=== PATIENT | male | born 1940 | race Caucasian/White ===

== ENCOUNTER → 2016-08-31 | Outpatient (CLI) | payer MEDICARE, OTHER ==
--- NOTE | 2016-08-31 09:14 | CT ---
EXAM DESCRIPTION: Abdomen and pelvis CT. CLINICAL HISTORY: Renal cyst followup COMPARISON: December 05, 2015 TECHNIQUE: Prior to and after the administration of contrast thin slice imaging of the abdomen and pelvis was performed. FINDINGS: Lung bases clear. Prior granulomatous disease is seen within the spleen. The liver, portal vein, gallbladder and pancreas are unremarkable. Bilateral renal cysts again noted. No evidence a renal obstruction. The renal cyst on today's study are stable. The ectasia of the infrarenal abdominal aorta. It measures 2.9 cm in diameter. On the previous exam it measured 2.75 cm. Small bowel is unobstructed. Diverticulosis of the colon noted. The appendix is unremarkable. The prostate is enlarged measuring 4.7 cm in the transverse dimension. IMPRESSION: The bilateral renal cysts are stable in size when compared to prior study. The Bosniac 2 F cyst seen within the upper pole of left kidney once again demonstrates septations along its inferior margin. A follow-up exam in 1 year is suggested to help document 2 years stability and a benign etiology. 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 This will also be followed up on patient subsequently ordered study as it is borderline aneurysmal. Electronically signed by: Rajinder Styles MD 08/31/2016 09:12
== END | disposition home or self-care (01) ==
LOC: CT 07:38
PROVIDERS: ATTEND Urology
DX: N28.1 Cyst of kidney, acquired (principal)

== ENCOUNTER → 2016-11-19 | Outpatient (CLI) | payer MEDICARE, OTHER | LOC: GMAB 10:36 | PROVIDERS: ATTEND Family Medicine | DX: I10 Essential (primary) hypertension (principal); Z12.5 Encounter for screening for malignant neoplasm of prostate | CPT/HCPCS: 84443; G0103 ==

== ENCOUNTER 2017-10-04 09:02 | Emergency (ER) | payer MEDICARE, OTHER ==
[2017-10-04] MEDS ORDERED: ALUM & MAG HYDROX-SIMETHICONE 30 ML, LIDOCAINE VISCOUS 2% 15 ML PO ONE ×2 (09:47)
--- NOTE | 2017-10-04 09:51 | ED.PDOC ---
History of Present Illness - General Chief Complaint: Abdominal Pain Stated Complaint: MIDEPIGASTRIC PAIN Time Seen by Provider: 10/04/17 09:36 Information Source: patient Exam Limitations: no limitations Additional Information: C/O EPIGASTRIC PAIN X 4 DAYS, CONSTANT, WORSENING, SHARP, BURNING, NO RADIATION - History of Present Illness Abdominal Pain Onset Location: epigastric Pain Radiation: no radiation Improving Factors: nothing Worsening Factors: nothing Associated Symptoms: denies symptoms Review of Systems - Review of Systems Constitutional: Denies: chills, fever EENTM: States: no symptoms reported Respiratory: Denies: cough, short of breath, wheezing Cardiology: Denies: chest pain, palpitations, syncope Gastrointestinal/Abdominal: States: abdominal pain. Denies: diarrhea, nausea, vomiting Genitourinary: States: no symptoms reported Musculoskeletal: States: no symptoms reported Skin: States: no symptoms reported Neurological: States: no symptoms reported Endocrine: States: no symptoms reported Hematologic/Lymphatic: States: no symptoms reported Past Medical History (General) - Patient Medical History Hx Stroke: No Hx Dementia: No Hx Asthma: No Hx of COPD: No Hx Cardiac Disorders: No Hx Congestive Heart Failure: No Hx Pacemaker: No Hx Hypertension: Yes Hx Thyroid Disease: No Hx Diabetes: No Hx Gastroesophageal Reflux: No Hx Renal Disease: No Surgical History: no surgical history - Social History Hx Tobacco Use: Yes Family Medical History - Family History Mother Family History: No Known Physical Exam - Physical Exam General Appearance: Alert, No apparent distress Eyes, Ears, Nose, Throat Exam: PERRL/EOMI, normal ENT inspection Neck: non-tender, full range of motion Respiratory: lungs clear, normal breath sounds Cardiovascular/Chest: regular rate, rhythm, no murmur Gastrointestinal/Abdominal: normal bowel sounds, soft, no organomegaly, other - MILD TTP EPIGASTRIC AND RUQ, NO CRAWFORD'S, NO HSM. NO MASSES Back Exam: normal inspection, no CVA tenderness, no vertebral tenderness Extremity: normal range of motion, non-tender Neurologic: alert, normal mood/affect Skin Exam: normal color, warm/dry Lymphatic: no adenopathy Progress - Progress Progress: 10/04/17 11:29 VSS. PT VERY ANXIOUS TO GO. HAS THREATENED TO LEAVE AMA ONCE. FEELS SOME BETTER. DISCUSSED RESULTS, DX, DIET, AND F/U WITH PT. - EKG/XRAY/CT EKG: Sinus - NSR, 66, NL AXIS, NL INTERVALS, , no ST T wave changes - NO OLD FOR COMPARISON XRAY: chest - RONAL Departure - Departure Clinical Impression: Abdominal pain Qualifiers: Abdominal location: right upper quadrant Qualified Code(s): R10.11 - Right upper quadrant pain Hypertension Qualifiers: Hypertension type: essential hypertension Qualified Code(s): I10 - Essential ( primary) hypertension ICD-10 Supporting Text: EPIGASTRIC, DDX: BILIARY COLIC, GASTRITIS Time of Disposition: :31 Disposition: Discharge to Home or Self Care Condition: Good Departure Forms: ED Discharge - Pt. Copy, Patient Portal Self Enrollment Instructions: DI for Abdominal Pain-Adult, DI for Biliary Colic Referrals: Lucas Moreno MD [Primary Care Provider] - 1-2 Weeks Prescriptions: Dicyclomine HCl [Bentyl] 20 mg PO Q6HR PRN #20 tab PRN Reason: Abdominal Cramping Tramadol HCl [Ultram] 50 mg PO Q6HR PRN #15 tab PRN Reason: Pain Home Medications: Ambulatory Orders Dicyclomine HCl [Bentyl] 20 mg PO Q6HR PRN #20 tab 10/04/17 Tramadol HCl [Ultram] 50 mg PO Q6HR PRN #15 tab 10/04/17
[2017-10-04] MEDS ORDERED: ALUM & MAG HYDROX-SIMETHICONE 30 ML UD ONE (10:00)
[2017-10-04] MEDS ORDERED: LIDOCAINE HCL 2% (MOUTH-THROAT) 15 ML UD ONE (10:00)
--- NOTE | 2017-10-04 10:41 | RAD ---
EXAM DESCRIPTION: Chest,1 View CLINICAL HISTORY: EPIGASTRIC PAIN FINDINGS/ IMPRESSION: Normal cardiomediastinal silhouette No pulmonary edema, infiltrate or effusion Electronically signed by: Aaron John MD 10/04/2017 10:41 AM CDT
[2017-10-04 11:41] VITALS: BP 150/89; TEMP 97.7; O2SAT 98
--- NOTE | 2017-10-04 17:32 | CT ---
EXAM DESCRIPTION: Abdomen/Pelvis w/wo Contrast CLINICAL HISTORY: 77 years Male, EPIGASTRIC PAIN COMPARISON: 31 August 2016 TECHNIQUE: Transaxial images were obtained with and without intravenous contrast media and without oral contrast media. Sagittal and coronal reconstruction was performed.This exam was performed according to our departmental dose-optimization program, which includes automated exposure control, adjustment of the mA and/or kV according to patient size and/or use of iterative reconstruction technique. FINDINGS: The lung bases are clear. The liver and spleen are normal in appearance. No biliary ductal dilatation is observed. The gallbladder is normal in appearance. Scattered calcified granulomas are observed in the spleen. No adrenal masses are detected. The pancreas has a cystic mass to its head which measures 5 cm in greatest dimension. This is felt to represent a pseudocyst. The body and tail of the pancreas are normal. Scattered simple cysts are detected throughout both kidneys. No solid mass or calcification is detected. Calcific atherosclerotic changes observed in the abdominal aorta without evidence of aneurysmal dilatation. No free fluid is observed. No inguinal region abnormality is detected. Some distention of the cecum with stool is observed. The cecum measures 8.4 cm in maximal diameter. No free fluid is observed. Some diverticulosis of the colon is observed without evidence of diverticulitis. IMPRESSION: 1. A cystic mass is observed in the head of the pancreas measuring 5 cm in diameter is believed to represent a pseudocyst. 2. Cysts are again observed in both kidneys and remain unchanged from the previous exam. 3. Some distention of the cecum is observed. It measures 8.4 cm in maximal diameter. 4. Uncomplicated diverticulosis of the colon. Electronically signed by: Jered Lazo MD 10/04/2017 5:31 PM CDT
== END 2017-10-04 11:41 | disposition home or self-care (01) ==
LOC: ER 09:02
DX: R10.11 Right upper quadrant pain (principal); I10 Essential (primary) hypertension

== ENCOUNTER → 2017-11-26 | Outpatient (CLI) | payer MEDICARE, OTHER | LOC: LAB.O 09:33 | PROVIDERS: ATTEND Internal Medicine Hematology & Oncology | DX: C83.39 Diffuse large B-cell lymphoma, extranodal and solid organ sites (principal) ==

== ENCOUNTER 2017-12-10 05:36 | Day surgery (SDC) | payer MEDICARE, OTHER ==
[2017-12-10] MEDS ORDERED: SODIUM BICARBONATE VIAL 50 MEQ/50 ML VIAL ONE (07:06)
[2017-12-10] MEDS ORDERED: LIDOCAINE 1% 50 ML VIAL INJ ONE (07:06)
[2017-12-10] MEDS ORDERED: HEPARIN SODIUM 100 U/ML 5 ML SYG IV ONE (07:07)
[2017-12-10] MEDS ORDERED: SODIUM CHLORIDE 0.9% 50 ML VIAL ONE (07:08)
[2017-12-10] MEDS ORDERED: ceFAZolin SODIUM 1 GM VIAL ONE (07:20)
[2017-12-10] MEDS ORDERED: LACTATED RINGERS 1,000 ML ONE (07:20)
[2017-12-10] MEDS ORDERED: SODIUM CHL 0.9% 100ML MINI-BAG 100 ML IVPB ONE (07:20)
--- NOTE | 2017-12-10 08:29 | RAD ---
EXAM DESCRIPTION: Chest,2 Views CLINICAL HISTORY: pre op COMPARISON: October 04, 2017 FINDINGS: Two-view chest x-ray shows cardiomediastinal silhouette and pulmonary vasculature to be within normal limits. The lungs are mildly hyperinflated without acute appearing of tracer consolidation.. Costophrenic angles are sharp. Mild disc degenerative changes of the spine are seen. IMPRESSION: No radiographic evidence of acute cardiopulmonary disease. Electronically signed by: Gurwinder Ching MD 12/10/2017 8:28 AM CDT
[2017-12-10] MEDS ORDERED: PROPOFOL 200 MG/20 ML VIAL IV ONE (09:00)
[2017-12-10] MEDS ORDERED: LIDOCAINE 1% 10 ML VIAL INJ ONE (09:00)
--- NOTE | 2017-12-10 10:02 | OP ---
DATE OF PROCEDURE: 12/10/17 PREOPERATIVE DIAGNOSIS: 1. Large B cell lymphoma. POSTOPERATIVE DIAGNOSIS: 1. Large B cell lymphoma. PROCEDURE: 1. Insertion of right subclavian venous access port using fluoroscopy. SURGEON: Tin Phipps MD. [employer] CONSULTANT: None. ANESTHESIA: Local infiltration of 1% lidocaine and IV sedation by Anesthesia. INDICATION: The patient is a 77-year-old male who has been diagnosed with large B cell lymphoma. He is to begin chemotherapy. He was brought to the Surgical Suite today for insertion of subclavian venous access port after the risks, benefits and alternatives to the procedure were discussed and accepted by the patient. FINDINGS: The subclavian vein was identified with one pass of the 22-gauge needle. The guidewire was identified in the chest in proper position in the superior vena cava, as is the port using fluoroscopy. PROCEDURE: After the patient was brought to the Surgical Suite and placed in the supine position, he was prepped and draped in the usual sterile manner. A surgical time-out was taken. At this point, the infraclavicular area on the right was infiltrated with anesthesia. A 22-gauge needle was walked down under the clavicle and advanced until venous blood was aspirated. A stab wound was made with a #15 blade and then the 18-gauge thin wall needle was introduced in the same tract. Venous blood was obtained. The guidewire was introduced to approximately 28 cm and cardiac ectopy was identified, so it was backed out to approximately 20 cm. The needle was removed. A port pocket was formed in the usual manner with local infiltration of anesthesia, a sharp knife and then dissection using electrocautery. Hemostasis was obtained with electrocautery. A towel was then placed over the field. Fluoroscopy was used to identify the guidewire in the superior vena cava. At this point, the port was introduced into the port pocket and sutured in placed with two simple sutures of Prolene. The catheter was tunneled from the port pocket to the introducer site using the tunneler. It was then cut to appropriate length. The dilator introducer was introduced over the guidewire. The dilator and guidewire were removed and the catheter was introduced through the introducer. The introducer was removed in the usual manner. When this was done, the port was accessed, easily aspirated and then flushed with heparinized saline followed by heplock and then de- accessed. At this point, another towel was put over the field and the catheter was checked for position in the superior vena cava. When this was done, the port pocket subcutaneous tissue was reapproximated with interrupted 3-0 Vicryl sutures and the skin edges were approximated with 4-0 Vicryl subcuticular sutures, benzoin and Steri-Strips. The insertion site incision was closed with a single 4-0 Vicryl subcuticular suture, benzoin and Steri-Stripped. Pressure dressings were applied. The patient was awakened and taken to the Ambulatory Unit in stable condition. Estimated blood loss was less than 25 mL. All sponge , needle and instrument counts were correct. #[id number] [facility]
--- NOTE | 2017-12-10 10:18 | RAD ---
EXAM DESCRIPTION: Chest,1 View CLINICAL HISTORY: S/P PORT PLACEMENT COMPARISON: Chest x-ray at 745 this morning. TECHNIQUE: AP portable taken at 947 hours, upright position. FINDINGS: Central VAD inserted right subclavian with tip in the upper superior vena cava. No mediastinal widening or pneumothorax. No pleural effusion or infiltrate bilaterally. Cardiopulmonary vascular structures are unremarkable. IMPRESSION: Placement of VAD with no radiographic evidence of complications. Electronically signed by: Octavio Hansen MD 12/10/2017 10:16 AM CDT
[2017-12-10 10:57] VITALS: O2SAT 98
[2017-12-10 10:59] VITALS: BP 175/81; TEMP 97.3
== END 2017-12-10 10:40 | disposition home or self-care (01) ==
LOC: AMB 05:36
PROVIDERS: ATTEND Surgery
DX: C85.10 Unspecified B-cell lymphoma, unspecified site (principal); N40.0 Benign prostatic hyperplasia without lower urinary tract symptoms; I10 Essential (primary) hypertension; F17.210 Nicotine dependence, cigarettes, uncomplicated; R91.1 Solitary pulmonary nodule; N28.1 Cyst of kidney, acquired; Z88.2 Allergy status to sulfonamides; Z79.899 Other long term (current) drug therapy
CPT/HCPCS: 00532; 36415; 36561; 71045; 71046; 76000; 80048; 81001; 85025; 93005; A4216; J0690; J1642; J3490; J7050; J7120

== ENCOUNTER → 2017-12-31 | Outpatient (CLI) | payer MEDICARE, OTHER | LOC: GMAJS 11:26 | PROVIDERS: ATTEND Physician Assistant | DX: M25.461 Effusion, right knee (principal) ==

== ENCOUNTER → 2018-01-04 | Outpatient (CLI) | payer MEDICARE, OTHER | LOC: LAB.O 08:22 | PROVIDERS: ATTEND Internal Medicine Hematology & Oncology | DX: C83.39 Diffuse large B-cell lymphoma, extranodal and solid organ sites (principal) ==

== ENCOUNTER 2018-01-19 09:36 | Emergency (ER) | payer MEDICARE, OTHER ==
[2018-01-19] MEDS ORDERED: diazePAM 2 MG TAB PO ONE (10:00)
--- NOTE | 2018-01-19 10:48 | RAD ---
Procedure: XR CERVICAL SPINE 2 - 3 VIEWS Exam Date: 01/19/2018 9:59 AM CDT Ordering Provider: Toro Hannah Clinical Indication: paraspinal muscle spasms, chemo Comparison: None Findings: There is evidence of profound osteopenia. 2 mm grade 1 anterolisthesis at C6-C7. Multilevel moderate to severe disc space narrowing and endplate spurring is present. No definite acute fracture or focal osseous destruction is present. Prevertebral soft tissues are unremarkable. Slightly limited evaluation of the cervicothoracic junction. IMPRESSION: No acute osseous abnormality. Multilevel moderate to severe degenerative disc disease. Profound osteopenia. Electronically signed by: Yasmany Lozano MD 01/19/2018 10:47 AM CDT
[2018-01-19] MEDS ORDERED: POVIDONE IODINE 10 % 15 ML UD TOP ONE (11:00)
[2018-01-19] MEDS ORDERED: cefTRIAXone SODIUM 2 GM in SODIUM CHL 0.9% 50ML MIN-BAG+ 50 ML IVPB ONE (11:08)
[2018-01-19] MEDS ORDERED: MORPHINE SULFATE INJ 10 MG/ML VIAL IV ONE ×2 (11:08→12:32)
[2018-01-19] MEDS ORDERED: cefTRIAXone SODIUM 1 GM VIAL ONE ×2 (11:12→11:33)
[2018-01-19] MEDS ORDERED: SODIUM CHL 0.9% 50ML MIN-BAG+ 50 ML IVPB ONE (11:12)
--- NOTE | 2018-01-19 11:39 | CT ---
Procedure: , CT HEAD WITHOUT IV CONTRAST Exam Date: 01/19/2018 10:56 AM CDT Ordering Provider: Toro Hannah Clinical Indication: neck head pain on chemo Comparison: None Technique: CT images of the head were obtained without contrast administration. Coronal and sagittal reformats were obtained. This exam was performed according to our departmental dose-optimization program which includes automated exposure control, adjustment of the mA and/or kV according to patient size and/or use of iterative reconstruction technique. Findings: There is no acute cortical infarction, hemorrhage, midline shift, mass effect, or hydrocephalus. Prominent perivascular space inferior to the left lentiform nucleus. The calvaria and skull base are unremarkable. Paranasal sinuses and mastoid air cells are well aerated. Slightly asymmetrically diminished size of the left maxillary sinus. This may predispose to silent sinus syndrome. Impression: 1. No acute intracranial abnormality. Procedure: CT cervical spine WITHOUT IV CONTRAST Exam Date: 01/19/2018 10:56 AM CDT Ordering Provider: Toro Hannah Clinical Indication: neck head pain on chemo Comparison: None Technique: CT images of the cervical spine were obtained without intravenous contrast administration. Coronal and sagittal reformations were provided for further characterization. This exam was performed according to our departmental dose-optimization program which includes automated exposure control, adjustment of the mA and/or kV according to patient size and/or use of iterative reconstruction technique. Findings: Vertebral body heights are maintained. 2 mm retrolisthesis at C4-C5 and C5-C6. Remaining alignment is normal The dens is intact. No evidence of fracture. No prevertebral soft tissue edema. Multilevel, multifactorial spondylosis is present without significant spinal canal stenosis. Centrilobular emphysema in the lungs. Impression: No CT evidence for acute cervical osseous injury. Trace C4-C5 and C5-C6 retrolisthesis. Electronically signed by: Yasmany Lozano MD 01/19/2018 11:38 AM CDT
[2018-01-19 12:53] VITALS: O2SAT 98
[2018-01-19] MEDS ORDERED: HYDROmorphone HCL INJ 2 MG/ML VIAL IV ONE (13:14)
[2018-01-19] MEDS ORDERED: KETOROLAC TROMETHAMINE INJ 30 MG/ML VIAL IV ONE (13:14)
[2018-01-19] MEDS ORDERED: ACYCLOVIR SODIUM INJECTION 500 MG VIAL IVPB ONE (13:38)
[2018-01-19] MEDS ORDERED: DEXAMETHASONE INJ 4 MG/ML VIAL IV ONE (13:45)
--- NOTE | 2018-01-19 13:50 | ED.PDOC ---
History of Present Illness - General Chief Complaint: Neck Injury/Pain Stated Complaint: neck pain,swelling Time Seen by Provider: 01/19/18 09:50 Source: patient Exam Limitations: no limitations - History of Present Illness Initial Comments: pt presents after 4 hours of neck pain and then progressive headache. pt is on chemo for lymphoma of some for and due for another round in 1-2 weeks. no fevers. no pain yesterday but just not feeling good. no chronic neck pain or headaches. no real point tenderness over neck but worse at base of skull. does appear to have nuchal rigidity. no fever or diaphoresis. no altered mental status. no vomiting. no recent infection. no recent trauma. no syncope or near cyncope or vision changes. no hx of stroke or hemorrhagic stroke and no new meds otherwise. [facility] oncology who thinks he may have been on adriamycin, prednisone, rituxan, and vincristine but was uncertain bc was unable to access records on the holiday. Timing/Duration: 4-6 hours Severity: severe Improving Factors: nothing Worsening Factors: movement Associated Symptoms: headaches Allergies/Adverse Reactions: Allergies Sulfa Antibiotics Allergy (Verified 10/04/17 09:19) Home Medications: Ambulatory Orders Lisinopril 5 mg PO DAILY 12/10/17 Pitavastatin Calcium [Livalo] 2 mg PO DAILY 12/10/17 Review of Systems - Review of Systems Constitutional: States: malaise. Denies: diaphoresis, fever EENTM: Denies: eye pain, blurred vision Respiratory: States: no symptoms reported Cardiology: States: no symptoms reported Gastrointestinal/Abdominal: States: no symptoms reported Genitourinary: States: no symptoms reported Musculoskeletal: States: neck pain Skin: States: no symptoms reported Neurological: States: anxiety, headache. Denies: numbness, paresthesia, tingling, tremors, weakness Endocrine: States: no symptoms reported All other Systems: No Change from Baseline Past Medical History (General) - Patient Medical History Hx Stroke: No Hx Dementia: No Hx Asthma: No Hx of COPD: No Hx Cardiac Disorders: No Hx Congestive Heart Failure: No Hx Pacemaker: No Hx Hypertension: Yes Hx Thyroid Disease: No Hx Diabetes: No Hx Gastroesophageal Reflux: No Hx Renal Disease: No Hx MRSA: No Surgical History: no surgical history - Vaccination History Hx Influenza Vaccination: Yes Hx Pneumococcal Vaccination: No - Social History Hx Tobacco Use: Yes Family Medical History - Family History Mother Family History: No Known Physical Exam - Physical Exam General Appearance: Alert, Obvious distress - obvious pain Eye Exam: bilateral normal Ears, Nose, Throat: hearing grossly normal, normal ENT inspection, normal pharynx Neck: other - uncomfortable to palpation of upper paraspinous paracervical muscles. no torticollis. Respiratory: lungs clear, normal breath sounds, no respiratory distress, no accessory muscle use Cardiovascular/Chest: normal peripheral pulses, regular rate, rhythm, no edema Peripheral Pulses: radial,right: 2+, radial,left: 2+, dorsalis pedis,right: 2+, dorsalis pedis,left: 2+ Gastrointestinal/Abdominal: non tender, soft Rectal Exam: deferred Back Exam: normal inspection, no CVA tenderness, no vertebral tenderness Extremity: normal range of motion, non-tender, normal inspection, no pedal edema , normal capillary refill Neurologic: sap trainer II-XII nml as tested, no motor/sensory deficits, alert, oriented x 3, other - does activly resist movement of the head and neck due to pain. Skin Exam: normal color Comments: Vital Signs - 24 hr 01/19/18 01/19/18 01/19/18 09:43 11:37 12:52 Temperature 98.1 F Pulse Rate [ 100 H 92 H 58 L Right Brachial] Respiratory 20 20 16 Rate Blood Pressure 126/78 141/79 149/69 [Right Arm] O2 Sat by Pulse 97 100 98 Oximetry Progress - Progress Progress: 01/19/18 13:55 pt is a 77 yo cm on chemo with severe neck pain and rigidity along with a severe headache and leukocytosis. I am uncertain of the cause at this time. ct scan of the head and neck are reassuring. Lumbar puncture here fails to show a significant pathogen on gram stain and wbc and rbc are both zero. glucose and protein are mildly low. His peripheral wbc are significantly elevated since 2 weeks ago going from 6k to 19k. blood culture has been done. no altered mental status and no fever. pain is severe and has required significant dosing of opiates along with a dose of valium and toradol. GIven his immunocomprimised state, while he does not likely have a bacterial meningitis, I can not definitively rule out other less common sources in a timely manner at this facility due to increased laboratory turn around time. Remainder of csf drawn is being sent to receiving facility for additional testing including further staining, culture and viral panel testing. he did initiially receive 1 dose of rocephin while labs were running, and is receiving a moderate dose of dexamethasone and a dose of iv acyclovir at this time. This could certainly be a side effect of chemo its self, may simply end up being a bad muslce spasm alone, or may be from another source such as venous sinus thrombosis. he needs further monitoring and testing and I believe a neurology evaluation for additional guidance in his workup. Transferring for higher level of care. lumbar puncture: r/b explained and pt and family agreed. laid on right side and prepped with betadine. entered l2-3 after sterile drape/prep. clear fluid obtained. opening pressure of 9cm. tolerated well. gram stain, wbc, rbc, protein adn glucose run on tube number 2 here. others sent to receiving facility for additional testing. - Results/Orders Results/Orders: Laboratory Tests 01/19/18 01/19/18 01/19/18 09:58 09:59 09:59 WBC RBC Hgb Hct MCV MCH MCHC RDW Plt Count MPV Absolute Neuts (auto) Absolute Lymphs (auto) Absolute Monos (auto) Absolute Eos (auto) Absolute Basos (auto) Neutrophils % Lymphocytes % Monocytes % Eosinophils % Basophils % PT 12.2 INR 1.050 PTT (SP) 34.0 Sodium 139 Potassium 4.1 Chloride 104 Carbon Dioxide 27 Anion Gap 12.1 BUN 17 Creatinine 0.91 BUN/Creatinine Ratio 18.7 Random Glucose 108 H Serum Osmolality 279.6 Lactic Acid Calcium 9.0 Magnesium 2.0 Total Bilirubin 0.3 AST 14 ALT 12 Alkaline Phosphatase 122 H Creatine Kinase 30 L CK-MB (CK-2) 1.9 CK-MB (CK-2) % Not Reportable Troponin I 0.04 Serum Total Protein 7.1 Albumin 4.0 Globulin 3.1 Albumin/Globulin Ratio 1.3 CSF Appearance CSF Color CSF WBC CSF RBC CSF Neutrophils CSF Glucose CSF Total Protein 01/19/18 01/19/18 01/19/18 09:59 10:11 12:09 WBC 19.4 H RBC 4.71 Hgb 14.0 Hct 41.6 L MCV 88.3 MCH 29.7 MCHC 33.6 RDW 14.6 H Plt Count 217 MPV 7.9 Absolute Neuts (auto) 17.70 H Absolute Lymphs (auto) 0.80 L Absolute Monos (auto) 0.80 Absolute Eos (auto) 0.00 Absolute Basos (auto) 0.10 Neutrophils % 91.0 H Lymphocytes % 4.4 L Monocytes % 4.1 Eosinophils % 0.1 L Basophils % 0.4 PT INR PTT (SP) Sodium Potassium Chloride Carbon Dioxide Anion Gap BUN Creatinine BUN/Creatinine Ratio Random Glucose Serum Osmolality Lactic Acid 1.1 Calcium Magnesium Total Bilirubin AST ALT Alkaline Phosphatase Creatine Kinase CK-MB (CK-2) CK-MB (CK-2) % Troponin I Serum Total Protein Albumin Globulin Albumin/Globulin Ratio CSF Appearance Clear CSF Color Colorless CSF WBC 0 CSF RBC 0 CSF Neutrophils Not Reportable CSF Glucose CSF Total Protein 01/19/18 12:09 WBC RBC Hgb Hct MCV MCH MCHC RDW Plt Count MPV Absolute Neuts (auto) Absolute Lymphs (auto) Absolute Monos (auto) Absolute Eos (auto) Absolute Basos (auto) Neutrophils % Lymphocytes % Monocytes % Eosinophils % Basophils % PT INR PTT (SP) Sodium Potassium Chloride Carbon Dioxide Anion Gap BUN Creatinine BUN/Creatinine Ratio Random Glucose Serum Osmolality Lactic Acid Calcium Magnesium Total Bilirubin AST ALT Alkaline Phosphatase Creatine Kinase CK-MB (CK-2) CK-MB (CK-2) % Troponin I Serum Total Protein Albumin Globulin Albumin/Globulin Ratio CSF Appearance CSF Color CSF WBC CSF RBC CSF Neutrophils CSF Glucose 55 CSF Total Protein 43.8 ct of head and cervical spine fail to demonstrate any acute pathology. no hemorrhage, ischemia stroke, herniation or significant cord compression. no evidence of acute trauma. Departure - Departure Clinical Impression: Neck pain, Immunocompromised state Leukocytosis, unspecified Qualifiers: Leukocytosis type: unspecified Qualified Code(s): D72.829 - Elevated white blood cell count, unspecified Disposition: Transfer to Hospital Condition: Serious Referrals: CARLA RAMIREZ MD [Primary Care Provider] - 1-2 Weeks Home Medications: Ambulatory Orders Lisinopril 5 mg PO DAILY 12/10/17 Pitavastatin Calcium [Livalo] 2 mg PO DAILY 12/10/17 Transfer to Outside Facility - Transfer Information Accepting Provider:: dr wu Accepting Facility: [facility] Reason for Transfer: required specialist not available
[2018-01-19] MEDS ORDERED: SODIUM CHLORIDE 0.9% 100ML 100 ML IVPB ONE (14:06)
[2018-01-19 15:21] VITALS: BP 122/76; TEMP 97.5
== END 2018-01-19 15:21 | disposition short-term general hospital (02) ==
LOC: ER 09:36
DX: M54.2 Cervicalgia (principal); D72.829 Elevated white blood cell count, unspecified; R51 Headache; C85.90 Non-Hodgkin lymphoma, unspecified, unspecified site; I10 Essential (primary) hypertension; Z79.899 Other long term (current) drug therapy; Z87.891 Personal history of nicotine dependence
CPT/HCPCS: 36415; 70450; 72040; 72125; 80053; 82550; 82553; 82945; 83605; 83735; 84157; 84484; 85025; 85610; 85730; 87040; 89051; J0133; J0696; J1100; J1170; J1885; J2270; J7050

== ENCOUNTER 2018-01-20 10:48 | Emergency (ER) | payer MEDICARE, OTHER ==
[2018-01-20 11:01] VITALS: TEMP 97.4
[2018-01-20] MEDS ORDERED: CYCLOBENZAPRINE HCL 10 MG TAB PO ONE (11:29)
[2018-01-20] MEDS ORDERED: KETOROLAC TROMETHAMINE INJ 30 MG/ML VIAL IV ONE (11:29)
--- NOTE | 2018-01-20 11:40 | ED.PDOC ---
History of Present Illness - General Chief Complaint: Back Pain or Injury Stated Complaint: NECK PAIN Time Seen by Provider: 01/20/18 11:27 Source: patient, family, old records Exam Limitations: no limitations - History of Present Illness Initial Comments: patient comes in for return of severe neck pain. Yesterday patient awoke with severe bilateral neck and lower head pain. Patient could not move his head and presented to the emergency room. Thorough workup including CT of the head and neck as well as lumbar puncture was performed. Patient was also transferred to [facility] for neurology consultation and further evaluation. At that time he received a diagnosis of musculoskeletal pain and was sent home. Patient stated he felt well at that time after receiving morphine and I allotted here in our emergency room. No additional medication was given at [facility] and nothing was given 10 at discharge. Patient at discharge felt well and was able to go about with a normal dinner. On awakening this morning at 3 AM patient had return of the severe bilateral neck pain and stiffness that radiates up to the posterior head. He denies any fever, chills, altered LOC, vision change, nausea or vomiting. He is currently undergoing treatment for lymphoma. patient denies any numbness or weakness to his hands or feet and no radiation of the pain. Timing/Duration: 24 hours Quality/Severity: severe, sharpness Back Pain Location: C-spine Method of Injury/Prior Injury: unknown Improving Factors: nothing Worsening Factors: movement Allergies/Adverse Reactions: Allergies Sulfa Antibiotics Allergy (Verified 10/04/17 09:19) Home Medications: Ambulatory Orders Lisinopril 5 mg PO DAILY 12/10/17 Pitavastatin Calcium [Livalo] 2 mg PO DAILY 12/10/17 Acetaminophen W/ Codeine [Tylenol W/ CODEINE #3] 1 ea PO Q6HR PRN 5 Days #20 Cyclobenzaprine HCl [Flexeril] 10 mg PO TID 5 Days #15 tab 01/20/18 Review of Systems - Review of Systems Constitutional: States: no symptoms reported. Denies: chills, diaphoresis, fever, weakness EENTM: States: no symptoms reported. Denies: eye pain, ear pain, nose pain, throat pain Respiratory: States: no symptoms reported. Denies: cough, orthopnea, short of breath, wheezing Cardiology: States: no symptoms reported. Denies: chest pain, edema, palpitations, syncope Gastrointestinal/Abdominal: States: no symptoms reported. Denies: abdominal pain, constipation, diarrhea, nausea Genitourinary: States: no symptoms reported. Denies: discharge, dysuria, frequency, hematuria Musculoskeletal: States: see HPI Skin: States: no symptoms reported Past Medical History (General) - Patient Medical History Hx Stroke: No Hx Dementia: No Hx Asthma: No Hx of COPD: No Hx Cardiac Disorders: No Hx Congestive Heart Failure: No Hx Pacemaker: No Hx Hypertension: Yes Hx Thyroid Disease: No Hx Diabetes: No Hx Gastroesophageal Reflux: No Hx Renal Disease: No Hx MRSA: No Surgical History: no surgical history - Vaccination History Hx Influenza Vaccination: Yes Hx Pneumococcal Vaccination: No - Social History Hx Tobacco Use: Yes Family Medical History - Family History Mother Family History: No Known Physical Exam - Physical Exam General Appearance: Obvious distress Eyes, Ears, Nose, Throat Exam: PERRL/EOMI, TMs normal, pharynx normal Neck Exam: other - tight muscle spasm on bilateral trapezius muscles with tenderness at insertion points, no bruising, no deformity. Head is held in tight flexion Cardiovascular/Respiratory: regular rate, rhythm, no M/R/G, normal peripheral pulses, no JVD, normal breath sounds, no respiratory distress Peripheral Pulses: radial,right: 2+, radial,left: 2+ Gastrointestinal/Abdominal: normal bowel sounds, non tender, soft Back Exam: other - no tenderness to the thoracic spine Neurologic: no motor/sensory deficits, alert, oriented x 3 Progress - Progress Progress: 01/20/18 13:23 Patient had pain 10/10 on arrival. After Toradol and Flexeril pain was much improved down to a 6. Valium and morphine was added to better control the pain. Patient was much improved but was educated on need to continue muscle relaxer to keep the spasm under control. he will be discharged home on flexeril and Tylenol #3 and was told to follow up with pcp in 2-3 days to recheck. Departure - Departure Clinical Impression: Muscle spasm Disposition: Discharge to Home or Self Care Condition: Good Departure Forms: ED Discharge - Pt. Copy, Patient Portal Self Enrollment Instructions: DI for Low Back Pain Diet: regular diet Referrals: CARLA RAMIREZ MD [Primary Care Provider] - 1-2 Weeks Prescriptions: Acetaminophen W/ Codeine [Tylenol W/ CODEINE #3] 1 ea PO Q6HR PRN 5 Days #20 PRN Reason: Pain Cyclobenzaprine HCl [Flexeril] 10 mg PO TID 5 Days #15 tab Home Medications: Ambulatory Orders Lisinopril 5 mg PO DAILY 12/10/17 Pitavastatin Calcium [Livalo] 2 mg PO DAILY 12/10/17 Acetaminophen W/ Codeine [Tylenol W/ CODEINE #3] 1 ea PO Q6HR PRN 5 Days #20 Cyclobenzaprine HCl [Flexeril] 10 mg PO TID 5 Days #15 tab 01/20/18 Additional Instructions: Return to ER for return to severe pain, temp >100.5, change in sensation to upper or lower extremities. Follow up with PCP in 2-[address] while taking sedative medication.
[2018-01-20] MEDS ORDERED: diazePAM INJ 10 MG/2 ML SYG IV ONE (12:30)
[2018-01-20] MEDS ORDERED: diazePAM 2 MG TAB ONE (12:55)
[2018-01-20] MEDS ORDERED: diazePAM 2 MG TAB PO ONE (12:59)
[2018-01-20 13:20] VITALS: O2SAT 97
[2018-01-20] MEDS ORDERED: MORPHINE SULFATE INJ 10 MG/ML VIAL IV ONE (13:21)
[2018-01-20 13:52] VITALS: BP 136/73
== END 2018-01-20 13:52 | disposition home or self-care (01) ==
LOC: ER 10:48
DX: M62.838 Other muscle spasm (principal); I10 Essential (primary) hypertension; Z88.2 Allergy status to sulfonamides; Z87.891 Personal history of nicotine dependence
CPT/HCPCS: J1885; J2270

== ENCOUNTER → 2018-01-24 | Outpatient (CLI) | payer MEDICARE, OTHER | LOC: LAB.O 09:47 | PROVIDERS: ATTEND Internal Medicine Hematology & Oncology | DX: C83.39 Diffuse large B-cell lymphoma, extranodal and solid organ sites (principal) ==

== ENCOUNTER → 2018-02-15 | Outpatient (CLI) | payer MEDICARE, OTHER | LOC: LAB.O 07:56 | PROVIDERS: ATTEND Internal Medicine Hematology & Oncology | DX: C83.39 Diffuse large B-cell lymphoma, extranodal and solid organ sites (principal) ==

== ENCOUNTER → 2018-02-21 | Outpatient (CLI) | payer MEDICARE, OTHER ==
--- NOTE | 2018-02-21 09:13 | CT ---
EXAM DESCRIPTION: CT ABDOMEN AND PELVIS WITHOUT AND WITH CONTRAST CLINICAL HISTORY: LARGE B-CELL LYMPHOMA COMPARISON: Previous study CT abdomen and pelvis October 04, 2017 TECHNIQUE: CT of the abdomen and pelvis are performed prior to and during IV bolus administration of routine adult dose of nonionic iodinated contrast. No oral contrast. FINDINGS: CT abdomen The lung bases are clear of infiltrate. Liver is normal in size and parenchymal appearance. Spleen, pancreas, and adrenal glands are unremarkable. Multiple cysts in the kidneys. The aorta is ectatic up to three cm in diameter. The infrarenal abdominal aorta previously measured 3 cm, unchanged. See follow-up recommendations below. Previous study showed a mass behind the head of the pancreas thought to be an enlarged portacaval node. This previously measured approximately 3.7 x 5.5 cm. On the present study, this is much smaller now measuring 3.7 x 1.6 cm. There is no other lymphadenopathy, inflammation, or free fluid observed. After IV contrast, repeat scanning through the abdomen shows normal renal cortical enhancement. Multiple nonenhancing renal lesions are consistent with cysts. Previous studies labeled the upper pole cyst of the left kidney as Bosniak class II. Posterior septations and enhancing vessels appear stable. This measures 2.3 cm in diameter unchanged. No malignant characteristics are seen on the present exam. No focal lesion of the liver spleen or pancreas on the postcontrast images. Delayed images show positive contrast opacification of the urinary collecting systems. No filling defects in the pelves or proximal ureters. Minimal contrast in the distal ureters and bladder. CT pelvis No inflammation is seen around the cecum or terminal ileum or sigmoid colon. Appendix is partly visualized. No stones are seen in the distal ureters or bladder. Normal pelvic small bowel loops. No fracture or lytic lesion of the osseous structures. Postcontrast images show normal enhancement of the pelvic vessels. Delayed images show positive contrast in the distal ureters and in the posterior bladder. Prostate and seminal vesicles appear unremarkable for age with prostate measuring 4.2 cm in transverse dimension. IMPRESSION: Decreased size of the enlarged portacaval lymph node compared to the previous study. Multiple renal cysts. Upper pole left renal cyst appears stable. 3 cm infrarenal abdominal aortic ectasia. Follow up as per recommendations below. AAA Size: Follow-up Recommendation (1): 2.6 - 2.9 cm Every 5 years (2) 3.0 - 3.4 cm Every 3 years 3.5 - 3.9 cm Every 12 months 4.0 - 4.4 cm Every 12 months, vasc consult rec 4.5 - 5.4 cm Every 6 months, vasc consult rec >=5.5 cm Referral to vascular surgeon recommended (1)Based upon the Society for Vascular Surgery Guidelines: J Vasc Surg. 2009 Apr;50(4 Suppl):S2-49 (2)For aortas of max regina of 2.6-2.9 cm that meet criteria for AAA (>= 1.5 x proximal normal segment). This exam was performed according to our departmental dose-optimization program, which includes automated exposure control, adjustment of the mA and/or kV according to patient size and/or use of iterative reconstruction technique. Total DLP equals 1053.22 mGycm. Electronically signed by: Pb Ortega MD 02/21/2018 9:12 AM CDT
== END ==
LOC: CT 08:30
PROVIDERS: ATTEND Internal Medicine Hematology & Oncology
DX: C83.39 Diffuse large B-cell lymphoma, extranodal and solid organ sites (principal); R59.9 Enlarged lymph nodes, unspecified; N28.1 Cyst of kidney, acquired; I71.4 Abdominal aortic aneurysm, without rupture

== ENCOUNTER → 2018-03-29 | Outpatient (CLI) | payer MEDICARE, OTHER | LOC: LAB.O 07:46 | PROVIDERS: ATTEND Internal Medicine Hematology & Oncology | DX: C83.39 Diffuse large B-cell lymphoma, extranodal and solid organ sites (principal) ==

== ENCOUNTER → 2018-04-06 | Outpatient (CLI) | payer MEDICARE, OTHER | LOC: LAB.O 08:47 | PROVIDERS: ATTEND Internal Medicine Hematology & Oncology | DX: C83.39 Diffuse large B-cell lymphoma, extranodal and solid organ sites (principal) ==

== ENCOUNTER → 2018-04-12 | Outpatient (CLI) | payer MEDICARE, OTHER | LOC: LAB.O 09:56 | PROVIDERS: ATTEND Internal Medicine Hematology & Oncology | DX: C83.39 Diffuse large B-cell lymphoma, extranodal and solid organ sites (principal) ==

== ENCOUNTER → 2018-04-13 | Outpatient (CLI) | payer MEDICARE, OTHER | LOC: GMAJS 12:53 | PROVIDERS: ATTEND Physician Assistant | DX: M25.469 Effusion, unspecified knee (principal) ==

== ENCOUNTER → 2018-04-14 | Outpatient (CLI) | payer MEDICARE, OTHER | LOC: GMAE 12:20 | PROVIDERS: ATTEND Family Medicine | DX: M25.561 Pain in right knee (principal) ==

== ENCOUNTER → 2018-04-18 | Outpatient (CLI) | payer MEDICARE, OTHER | LOC: LAB.O 08:53 | PROVIDERS: ATTEND Internal Medicine Hematology & Oncology | DX: C83.39 Diffuse large B-cell lymphoma, extranodal and solid organ sites (principal) ==

== ENCOUNTER → 2018-06-15 | Outpatient (CLI) | payer MEDICARE, OTHER | LOC: GMAE 10:29 | PROVIDERS: ATTEND Family Medicine | DX: I10 Essential (primary) hypertension (principal); C85.13 Unspecified B-cell lymphoma, intra-abdominal lymph nodes ==

== ENCOUNTER → 2018-10-20 | Outpatient (CLI) | payer MEDICARE, OTHER ==
--- NOTE | 2018-10-20 16:55 | CT ---
EXAM DESCRIPTION: Chest w/Contrast (accession [id number]), Abdomen/Pelvis w/wo Contrast (accession [id number]) CLINICAL HISTORY: 78 years Male, DIFFUSE LARGE B-CELL LYMPHOMA COMPARISON: CT of the thorax December 20152013. CT of the abdomen pelvis December 05, 2015. Similar studies October 04, 2017 and April 05, 2018. The most recent comparison February 21, 2018. TECHNIQUE: Postcontrast multidetector CT may of the thorax. Prepostcontrast multidetector CT imaging of the abdomen and pelvis. Multiplanar reconstructions were generated. This exam was performed according to our departmental dose-optimization program which includes automated exposure control, adjustment of the mA and/or kV according to patient size and/or use of iterative reconstruction technique. FINDINGS: No additional information is gleaned from the noncontrast portion of the CT abdomen pelvis. Specifically, no pathologic calcifications are present. CT thorax: Lower neck soft tissues are unremarkable in appearance. No axillary lymphadenopathy is present. The trachea and proximal bronchi are patent. No endobronchial lesions. No concerning pulmonary nodules are present. No acute airspace disease. No pleural thickening or pleural effusion. The thyroid gland is stable in appearance. No mediastinal or hilar lymphadenopathy is present. The heart size is normal. The great vessels are unremarkable. A right chest wall Mediport is noted with catheter positioned in the proximal superior vena cava. No aggressive lytic or blastic osseous lesions are demonstrated within the thorax. CT abdomen pelvis: No aggressive liver lesions are present. No intrahepatic ductal dilatation. The gallbladder and biliary system are normal in appearance. There is no pancreatic mass or inflammation. The spleen is normal in size. Old calcified granulomas are noted within the spleen. The bilateral adrenal glands are normal in appearance. Symmetric renal cortical enhancement and excretion of contrast. No nephrolithiasis or obstructive uropathy. No aggressive renal lesions. Benign cysts are seen within the bilateral kidneys stable from multiple priors. There is no abnormal bladder mucosal enhancement. No gastrointestinal obstruction or inflammation is present. No abdominal or pelvic lymphadenopathy is present. Specifically, no enlarged portal vein lymph nodes. The vasculature remains stable. No aggressive lytic or blastic osseous lesions are present within the lumbar spine and pelvis. IMPRESSION: No CT evidence for recurrent disease within the chest, abdomen and pelvis. Electronically signed by: Chevy Montes MD 10/20/2018 4:52 PM CDT
== END ==
LOC: CT 08:30
PROVIDERS: ATTEND Internal Medicine Hematology & Oncology
DX: C83.39 Diffuse large B-cell lymphoma, extranodal and solid organ sites (principal)

== ENCOUNTER → 2019-01-30 | Outpatient (CLI) | payer MEDICARE, OTHER | LOC: LAB.O 07:28 | PROVIDERS: ATTEND Internal Medicine Hematology & Oncology | DX: C83.39 Diffuse large B-cell lymphoma, extranodal and solid organ sites (principal) ==

== ENCOUNTER → 2019-04-28 | Outpatient (CLI) | payer MEDICARE, OTHER ==
--- NOTE | 2019-04-28 10:23 | CT ---
EXAM DESCRIPTION: Abdomen/Pelvis w/wo Contrast CLINICAL HISTORY: 79 years Male, BPH WITHOUT OBSTRUCTION TECHNIQUE: This exam was performed according to our departmental dose-optimization program, which includes automated exposure control, adjustment of the mA and/or kV according to patient size and/or use of iterative reconstruction technique. COMPARISON: February 21, 2018 FINDINGS: Visualized lung bases are grossly unremarkable. The liver is unremarkable. No suspicious hepatic lesion. No biliary dilatation. The portal vein is patent. The gallbladder is unremarkable. Calcified granulomas present within the spleen. The pancreas and adrenal glands are unremarkable Hyperdense, nonenhancing superior right renal cystic lesion measuring 9 mm. Bilateral renal cysts. No solid enhancing renal lesion identified. No hydronephrosis. No obstructing ureteral stone. Symmetric renal parenchymal enhancement. No urothelial lesion identified. Unremarkable bladder. The prostate measures 4 cm. Scattered colonic diverticula without focal inflammatory change. No evidence of bowel obstruction. No findings to suggest appendicitis. No adenopathy. No focal fluid collection. No free air. Dilatation of the infrarenal abdominal aorta measuring 3.0 cm. Mild atherosclerotic disease. No acute or suspicious osseous abnormality. Scattered degenerative changes present. IMPRESSION: 1. The prostate measures 4 cm (within normal limits). 2. Dilatation of the infrarenal abdominal aorta measuring three. Recommend follow up ultrasound or CT every 3 years. Electronically signed by: Michael Vasquez MD 04/28/2019 10:21 AM CDT
== END ==
LOC: LAB.O 08:00
PROVIDERS: ATTEND Internal Medicine Hematology & Oncology
DX: N40.1 Benign prostatic hyperplasia with lower urinary tract symptoms (principal); I77.811 Abdominal aortic ectasia

== ENCOUNTER → 2019-05-01 | Outpatient (CLI) | payer MEDICARE, OTHER | LOC: LAB.O 07:49 | PROVIDERS: ATTEND Internal Medicine Hematology & Oncology | DX: C83.39 Diffuse large B-cell lymphoma, extranodal and solid organ sites (principal) ==

== ENCOUNTER → 2019-05-10 | Outpatient (CLI) | payer MEDICARE, OTHER | LOC: GMAHI 12:38 | PROVIDERS: ATTEND Nurse Practitioner Family | DX: E53.8 Deficiency of other specified B group vitamins (principal); E83.51 Hypocalcemia ==

== ENCOUNTER → 2019-07-27 | Outpatient (CLI) | payer MEDICARE, OTHER ==
--- NOTE | 2019-07-27 23:06 | US ---
EXAM DESCRIPTION: Thyroid CLINICAL HISTORY: 79 years Male, NONTOXIC SINGLE THYROID NODULE COMPARISON: Ultrasound thyroid 01/04/2014. FINDINGS: Size right thyroid lobe: 2.9 x 1.8 x 1.7 cm Size left thyroid lobe: 3.1 x 1.2 x 1.4 cm Size isthmus: 0.4 cm Thyroid parenchyma demonstrates homogeneous echogenicity. There is a 5 x 8 x 5 mm solid isoechoic nodule in the right thyroid lobe with peripheral calcification. Estimated total number of nodules greater than or equal to 1 cm: 1 Nodule 1: Size: 1.3 x 0.9 x 1.1 cm Location: Right Mid Composition: mixed cystic and solid: 1 point Echogenicity: hypoechoic: 2 points Shape: wider than tall: 0 points Margins: ill-defined: 0 points Echogenic foci: none: 0 points ACR Total Points: 3; ACR TI-RADS risk category: TR3 - mildly suspicious nodule. Nodule 2: Size: 0.9 x 1.3 x 0.7 cm Location: Isthmus Composition: spongiform: 0 points Echogenicity: hypoechoic: 2 points Shape: wider than tall: 0 points Margins: ill-defined: 0 points Echogenic foci: macrocalcifications: 1 point ACR Total Points: 3; ACR TI-RADS risk category: TR3 - mildly suspicious nodule. IMPRESSION: 1. Nodule 1: ACR TI-RADS 2017 Category 3. Recommend: Follow-up ultrasound in 1 year. 2. Nodule 2: ACR TI-RADS 2017 Category 3. Recommend: Follow-up ultrasound in 1 year. 3. When compared to 01/04/2014, the above nodules are smaller in size. ACR TI-RADS 2017 Recommendations: TR1: No FNA or follow up TR2: No FNA or follow up TR3: FNA if >/= 2.5 cm, follow up if 1.5 - 2.4 cm in 1, 3, and 5 years TR4: FNA if >/= 1.5 cm, follow up if 1.0 - 1.4 cm in 1, 2, 3, and 5 years TR5: FNA if >/= 1.0 cm, follow up if 0.5 - 0.9 cm every year for 5 years *ACR TI-RADS recommends that no more than two nodules with the highest ACR TI-RADS total point should be biopsied and no more than four nodules should be followed. Electronically signed by: Puma Soto MD 07/27/2019 11:04 PM [facility]
== END ==
LOC: US 10:30
PROVIDERS: ATTEND Family Medicine
DX: E04.1 Nontoxic single thyroid nodule (principal)

== ENCOUNTER → 2020-04-30 | Outpatient (CLI) | payer MEDICARE, OTHER ==
--- NOTE | 2020-05-01 10:55 | CT ---
Study: CT Chest, Abdomen and Pelvis. Indication: DIFFUSE LARGE B-CELL LYMPHOMA EXTRANODAL AND SOLID ORGAN SITES Technique: Noncontrast CT abdomen and pelvis initially obtained. Venous phase CT imaging of the chest, abdomen, and pelvis performed after intravenous administration of contrast. Delayed phase CT imaging of the abdomen and pelvis subsequently obtained. This exam was performed according to our departmental dose-optimization program, which includes automated exposure control, adjustment of the mA and/or kV according to patient size and/or use of iterative reconstruction technique. Comparison: October 25, 2019. Findings: Atherosclerosis great vessels, aorta, coronary arteries. Right subclavian venous catheter tip terminating in the proximal SVC. No pathologically enlarged mediastinal/hilar lymphadenopathy.No consolidation, pleural effusion, pneumothorax, or mass. Several benign perifissural nodules redemonstrated. No additional follow-up of these nodules required. Liver, gallbladder, pancreas, spleen, adrenal glands multiple bilateral renal cysts redemonstrated. Bladder and prostate gland unremarkable. Colonic diverticulosis. Mild constipation. What is believed to be the appendix is unremarkable. Stomach and small bowel unremarkable. No free fluid. No free air. No pathologically enlarged retroperitoneal lymphadenopathy. Aneurysmal dilatation of the abdominal aorta measuring 3.2 cm. Degenerative changes of the spine noted. Impression: No pathologically enlarged lymphadenopathy of the chest, abdomen, or pelvis. Mild constipation. 3.2 cm abdominal aortic aneurysm. Follow-up abdominal sonogram recommended every 3 years. Additional findings as above. Electronically signed by: Jayden Long MD 05/01/2020 10:54 AM CDT [facility]
== END ==
LOC: LAB.O 09:15
PROVIDERS: ATTEND Internal Medicine Hematology & Oncology
DX: C83.39 Diffuse large B-cell lymphoma, extranodal and solid organ sites (principal); I71.4 Abdominal aortic aneurysm, without rupture; I70.0 Atherosclerosis of aorta; I25.10 Atherosclerotic heart disease of native coronary artery without angina pectoris; K57.30 Diverticulosis of large intestine without perforation or abscess without bleeding; K59.00 Constipation, unspecified